=== PATIENT | male | born 1945 | race Two or more races ===

== ENCOUNTER → 2022-07-28 | Outpatient (CLI) | payer MEDICAID, MEDICARE ==
[2022-07-28 12:45] LABS: BILIRUBIN,URINE NEGATIVE (NEGATIVE); COLOR,URINE YELLOW (YELLOW); LEUKOCYTE ESTERASE ,URINE NEGATIVE (NEGATIVE); NITRITE, URINE NEGATIVE (NEGATIVE); PH,URINE 6.5 (5.0-8.0); PROTEIN,URINE TRACE mg/dl (NEGATIVE); UGLUCOSE 3+ mg/dL (NEGATIVE); UROBILINOGEN,URINE 0.2 EU/dL (0.2)
[2022-07-28 12:50] LABS: WHITE BLOOD COUNT (AUTO) 2.9 K/uL (4.3-11.0)
[2022-07-28 12:52] LABS: CARBON DIOXIDE 29 mmol/L (21-32); CHLORIDE 102 mmol/L (98-107); CREATININE 1.4 mg/dL (0.6-1.3); GLUCOSE 196 mg/dL (74-106); POTASSIUM 4.2 mmol/L (3.5-5.1); SODIUM SERUM 138 mmol/L (136-145); UREA NITROGEN, BLOOD 27 mg/dL (7-18)
[2022-07-28 12:53] LABS: BASOPHILS % (AUTO) 0.9 % (0.0-2.0); HEMATOCRIT 33 % (39-51); HEMOGLOBIN 10.8 g/dL (13.5-17.5); LYMPHOCYTES # (AUTO) 0.9 K/uL (0.8-4.8); LYMPHOCYTES % (AUTO) 30.9 % (20.0-44.0); MEAN CORPUSCULAR HGB CONC 33 g/dl (31.0-36.0); MEAN CORPUSCULAR VOLUME 93 fL (80-96); MONOCYTES # (AUTO) 0.7 K/uL (0.1-1.30); MONOCYTES % (AUTO) 25.3 % (2.0-12.0); NEUTROPHILS # (AUTO) 1.2 K/uL (1.8-8.9); NEUTROPHILS % (AUTO) 42.9 % (43.0-81.0); PLATELET COUNT (AUTO) 271 K/uL (150-450); RED BLOOD CELL COUNT(AUTO) 3.57 MIL/uL (4.5-6.0)
[2022-07-28 13:50] LABS: BACTERIA,URINE Few /HPF (None Seen); RBC,URINE 0-2 /HPF (0-2); SQUAMOUS EPITHELIAL CELL,UR Few /HPF (None Seen); WBC,URINE 0-2 /HPF (0-3)
[2022-07-28 14:01] LABS: LYMPHOCYTES % (MANUAL) 27 % (16-48); MONOCYTES % (MANUAL) 17 % (0-11.0)
[2022-07-28 14:04] LABS: BAND % (MANUAL) 6 % (0.0-5.0); NEUTROPHILS % (MANUAL) 50 (42-76)
== END | disposition home or self-care (01) ==
LOC: LAB 12:02
PROVIDERS: ATTEND Internal Medicine Pulmonary Disease
DX: Z01.818 Encounter for other preprocedural examination (principal); R94.31 Abnormal electrocardiogram [ECG] [EKG]
CPT/HCPCS: 36415; 71045-TC; 80048-TC; 81001; 85025-TC; 85730-TC

== ENCOUNTER 2022-07-31 07:15 | Outpatient (CLI) | payer MEDICARE, MEDICAID | END 2022-07-31 23:59 | disposition home or self-care (01) | LOC: LAB 07:15 | PROVIDERS: ATTEND Dentist Oral and Maxillofacial Surgery | DX: Z01.812 Encounter for preprocedural laboratory examination (principal); Z20.822 Contact with and (suspected) exposure to COVID-19 | CPT/HCPCS: U0003; C9803 ==

== ENCOUNTER 2022-08-04 09:44 | Day surgery (SDC) | payer MEDICARE, OTHER ==
[~2022-08-04] VITALS: Ht 170.2 cm; Wt 110.0 kg
--- NOTE | 2022-08-04 10:00 | NUR ---
PATIENT ACCOUNT ANALYST NOTES PT ADMITTED TO UNIT AMBULATORY AT 0955 FOR DAY SURGERY (RESECT CLOSE FISTULA AND SUBMUCOSAL LESION). A/O X 4, ABLE TO MAKE NEEDS KNOWN. MAINTAINED ON NPO, VERBALIZED UNDERSTANDING. ON ROOM AIR, TOLERATING WELL. NO C/O PAIN AND DISCOMFORT. WITH PICC LINE IN THE MANNY, C/D/I. NO SKIN ISSUES NOTED. SURGICAL CONSENT AND CHECKLIST, ANESTHESIA AND BT CONSENT SIGNED. V/S TAKEN AND RECORDED. SAFETY PRECAUTIONS IMPLEMENTED: BED IN LOWEST LOCKED POSITION, SIDE RAILS UP X 2, CALL LIGHT AND TRAY TABLE WITHIN EASY REACH. WILL CONTINUE TO MONITOR.
[2022-08-04 12:08] VITALS: BP 146/82
[2022-08-04] MEDS ORDERED: FENTANYL PF 100MCG/2ML AMPUL ONE (15:17)
[2022-08-04] MEDS ORDERED: VANCOMYCIN 1 GM VIAL ONE (15:17)
[2022-08-04] MEDS ORDERED: MIDAZOLAM HCL 2 MG/2ML VIAL ONE (15:17)
[2022-08-04] MEDS ORDERED: FAMOTIDINE/PF INJ 20 MG/2 ML VIAL IV ONE (15:18)
[2022-08-04] MEDS ORDERED: ROCURONIUM BROMIDE 50 MG/5 ML ONE (15:18)
[2022-08-04] MEDS ORDERED: LIDOCAINE 2%-EPI 1:200,000 20 ML VIAL IJ ONE (15:21)
[2022-08-04 16:00] VITALS: BP 163/62
[2022-08-04] MEDS ORDERED: IV NS 0.9% 1,000 ML IV PRN (17:00)
[2022-08-04] MEDS ORDERED: HYDROMORPHONE 1 MG/1 ML DISP.SYRIN IV PRN (17:30)
[2022-08-04] MEDS ORDERED: ONDANSETRON HCL/PF 4 MG/2 ML VIAL IV PRN (17:30)
--- NOTE | 2022-08-04 17:32 | NUR ---
RN NOTES PATIENT VERBALIZED PAIN IN THE SURGICAL SITE (BILATERAL JAW) WITH THE SCALE OF 8/10, DILAUDID 1MG/ML IV PRN GIVEN AT 1730. WILL CONTINUE TO MONITOR.
--- NOTE | 2022-08-04 18:35 | NUR ---
MOLD POLISHER NOTE PATIENT DISCHARGED TO HOME IN STABLE CONDITION, S/P BILATERAL MAXILLARY AND MANDIBULAR SUBMUCOSAL LESIONS AND HARDWARE RESECTIONS TODAY. A/O X 4, ABLE TO MAKE NEEDS KNOWN. ON RA, TOLERATING WELL, NO SIGN OF ACUTE RESPIRATORY DISTRESS NOTED. VITAL SIGNS TAKEN. ALL BELONGINGS ACCOUNTED FOR. NEEDS ATTENDED. CHARGE NURSE AND MD AWARE OF DISCHARGE. PATIENT LEFT THE UNIT VIA WHEELCHAIR AT 1833 ACCOMPANIED BY PATRICIA CARBAJAL.
== END 2022-08-04 18:00 | disposition home or self-care (01) ==
LOC: DS 09:44 → MED 09:45 → UNDOADMIN 09:45 → DS 18:00 → UNDODISIN 18:36
PROVIDERS: ATTEND Dentist Oral and Maxillofacial Surgery
DX: T84.69XA Infection and inflammatory reaction due to internal fixation device of other site, initial encounter (principal); M27.8 Other specified diseases of jaws; C92.00 Acute myeloblastic leukemia, not having achieved remission; K09.9 Cyst of oral region, unspecified; Y82.8 Other medical devices associated with adverse incidents; Y92.89 Other specified places as the place of occurrence of the external cause; K13.79 Other lesions of oral mucosa; Z95.1 Presence of aortocoronary bypass graft; I10 Essential (primary) hypertension; E78.5 Hyperlipidemia, unspecified; E11.9 Type 2 diabetes mellitus without complications; Z79.899 Other long term (current) drug therapy; N40.0 Benign prostatic hyperplasia without lower urinary tract symptoms; I25.10 Atherosclerotic heart disease of native coronary artery without angina pectoris; Z98.890 Other specified postprocedural states
CPT/HCPCS: 40814; 20680; 40812; 88300; 88305; 82962 ×2; J1100; J2704; J3010; J3490 ×2; J2765; J3370; J2405; J7050; J2250; J1170; G0378